=== PATIENT | female | born 1995 | race Caucasian/White ===

== ENCOUNTER 2017-04-09 09:17 | Emergency (ER) | payer OTHER ==
[~2017-04-09] VITALS: Ht 149.9 cm; Wt 57.6 kg
== END 2017-04-09 13:09 | disposition home or self-care (01) ==
LOC: ER 09:17
DX: O20.0 Threatened abortion (principal); Z34.01 Encounter for supervision of normal first pregnancy, first trimester

== ENCOUNTER 2017-08-14 05:11 | Inpatient (IN) | payer OTHER ==
[~2017-08-14] VITALS: Ht 144.8 cm; Wt 3.2 kg
[2017-08-14] MEDS ORDERED: PRENATAL TABLE1 EAC1 PO (05:28)
== END 2017-08-18 15:54 | disposition home or self-care (01) | DRG 766 ==
LOC: LDR 05:11 → OB/GYN 05:11
PROVIDERS: Specialist
PROC: 4A033R1 Measurement of Arterial Saturation, Peripheral, Percutaneous Approach (ICD-10-PCS; 2017-08-14)
PROC: 4A1HXCZ Monitoring of Products of Conception, Cardiac Rate, External Approach (ICD-10-PCS; 2017-08-14)
PROC: 10D00Z1 Extraction of Products of Conception, Low, Open Approach (ICD-10-PCS; principal; 2017-08-14 11:00)
DX: O62.1 Secondary uterine inertia (principal); O99.824 Streptococcus B carrier state complicating childbirth; Z3A.37 37 weeks gestation of pregnancy; Z37.0 Single live birth